=== PATIENT | male | born 1995 | race African-American/Black ===

== ENCOUNTER → 2019-02-27 | Outpatient (CLI) | payer BC ==
--- NOTE | 2019-02-27 17:09 | Diagnostic Imaging Report ---
PROCEDURE: MRI right joint lower extremity without contrast. TECHNIQUE: Multiplanar, multisequence non contrast-enhanced MRI of the right knee was accomplished. INDICATION: Pain in the right knee, mostly lateral. Swelling, locks up. COMPARISON: None. FINDINGS: No acute fracture is seen in the right knee. Alignment appears normal. There is no significant joint effusion. The articular cartilage in the patellofemoral compartment demonstrates no full-thickness defects. The articular cartilage in the medial and lateral compartments demonstrates no full-thickness defects. There appears to be a parrot-beak tear at the anterior horn of the lateral meniscus (image 18 series 5 and image 9 series 3). The medial and lateral menisci otherwise appear diminutive, but no additional tears are identified. The anterior cruciate ligament is intact. The posterior cruciate ligament is intact. The medial collateral ligament is intact. The lateral collateral ligamentous complex is intact. The extensor mechanism demonstrates tendinopathy and partial tearing at the proximal patellar tendon, which can be seen with jumper's knee. There is mild edema in the adjacent Hoffa's fat pad. IMPRESSION: 1. Small tear at the anterior horn of the lateral meniscus in the right knee. 2. Tendinopathy and partial-thickness tearing of the proximal patellar tendon. Dictated by: Dictated on workstation # [id number]
== END ==
LOC: RAD 09:57
PROVIDERS: ATTEND Nurse Practitioner
DX: S83.281A Other tear of lateral meniscus, current injury, right knee, initial encounter (principal)
CPT/HCPCS: 73721